=== PATIENT | male | born 1950 | race Caucasian/White ===

== ENCOUNTER 2017-07-09 22:36 | Emergency (ER) | payer MEDICARE ==
[2017-07-09 22:44] VITALS: TEMP 98.4
[2017-07-09] MEDS ORDERED: HYDROmorphone 1 MG/ML 1 ML SYRINGE IVP STA (22:52)
[2017-07-09] MEDS ORDERED: GELATIN SPONGE,ABSORB (SMALL) 1 EACH SPONGE TOPICAL STA (22:52)
--- NOTE | 2017-07-09 23:00 | ED ---
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 Patient states this occurred about 45 minutes ago. Patient states that he is having difficulty getting the area to stop bleeding. Patient is unsure when his last tetanus shot was. He denies any use of anticoagulants. Denies any other injuries or physical concerns. - Related Data Home Medications Medication Instructions Recorded Confirmed Escitalopram [Lexapro] 10 mg PO DAILY 07/09/17 07/09/17 Insulin Detemir [Levemir Flextouch] 50 units SQ HS 07/09/17 07/09/17 amLODIPine [Norvasc] 5 mg PO DAILY 07/09/17 07/09/17 buPROPion HCL [Wellbutrin Sr] 200 mg PO DAILY 07/09/17 07/09/17 Allergies Allergy/AdvReac Type Severity Reaction Status Date / Time hydrocodone Allergy Intermediate Itching Verified 07/09/17 23:11 oxycodone Allergy Intermediate Itching Verified 07/09/17 23:11 hydromorphone [From Dilaudid] Allergy Mild Itching Verified 07/09/17 23:11 Sulfa (Sulfonamide Allergy Unknown Verified 07/09/17 23:11 Antibiotics) Childhood Review of Systems ROS Statement: Those systems with pertinent positive or pertinent negative responses have been documented in the HPI. ROS Other: All systems not noted in ROS Statement are negative. Past Medical History Past Medical History: Diabetes Mellitus, Hypertension History of Any Multi-Drug Resistant Organisms: None Reported Past Surgical History: Cholecystectomy Additional Past Surgical History / Comment(s): triger finger surgery Past Psychological History: No Psychological Hx Reported Smoking Status: Never smoker Past Alcohol Use History: Occasional Past Drug Use History: None Reported General Exam Limitations: no limitations General appearance: alert, in no apparent distress Respiratory exam: Present: normal lung sounds bilaterally. Absent: respiratory distress, wheezes, rales, rhonchi, stridor Cardiovascular Exam: Present: regular rate, normal rhythm, normal heart sounds. Absent: systolic murmur, diastolic murmur, rubs, gallop, clicks Extremities exam: Present: full ROM, normal capillary refill, other (Left thumb reveals a skin avulsion to the distal aspect of the palmar surface of the thumb. No nail involvement. Skin otherwise is pink, warm, and dry.). Absent: normal inspection, tenderness, pedal edema, joint swelling, calf tenderness Neurological exam: Present: alert, oriented X3, CN II-XII intact Psychiatric exam: Present: normal affect, normal mood Skin exam: Present: warm, dry, intact, normal color. Absent: rash Course Vital Signs 07/09/17 22:41 Temperature 98.4 F Pulse Rate 91 Respiratory 18 Rate Blood Pressure 198/92 O2 Sat by Pulse 97 Oximetry Medical Decision Making - Medical Decision Making 66-year-old male patient presented to emergency department today for evaluation of a wound to his left thumb. Physical exam did reveal a skin avulsion to the palmar surface of the distal thumb. Area was cleaned. Gelfoam was applied to the site, pressure held. Bleeding is controlled. Tubegauz dressing was placed over the injury. Patient instructed to follow up with his primary care physician in one to 2 days for recheck. Instructed regarding wound care and monitoring for infection. Instructed to return here immediately for any new, worsening, or concerning symptoms. Patient verbalizes understanding and agrees with this plan. Disposition Clinical Impression: Avulsion of skin of thumb Disposition: HOME SELF-CARE Condition: Good Instructions: Skin Avulsion (ED) Additional Instructions: Leave Gelfoam in place until it falls off on its own. Keep wound clean and dry. Monitor for signs or symptoms of infection including redness, swelling, drainage of pus, fever, and chills. Follow up with her primary care physician for recheck in 1-2 days. Return immediately for any new, worsening, or concerning symptoms. Referrals: Darrian Castillo DO [Primary Care Provider] - 1-2 days Time of Disposition: 23:19
[2017-07-09] MEDS ORDERED: DIPH,PERTUS(ACELL)TETVAC-LF 0.5 ML VIAL IM ONE (23:17)
[2017-07-09 23:58] VITALS: BP 122/56; PULSE 65; RESP 16
== END 2017-07-09 23:56 | disposition home or self-care (01) ==
LOC: EC 22:36
DX: S61.002A Unspecified open wound of left thumb without damage to nail, initial encounter (principal); E11.9 Type 2 diabetes mellitus without complications; I10 Essential (primary) hypertension; Z79.4 Long term (current) use of insulin; Z79.899 Other long term (current) drug therapy; Z88.2 Allergy status to sulfonamides; Z88.5 Allergy status to narcotic agent; Z88.8 Allergy status to other drugs, medicaments and biological substances; W26.0XXA Contact with knife, initial encounter; Y92.009 Unspecified place in unspecified non-institutional (private) residence as the place of occurrence of the external cause; Z23 Encounter for immunization
CPT/HCPCS: 90715; 99284; 96374; 90471; J1170